=== PATIENT | male | born 1950 | race Caucasian/White ===

== ENCOUNTER 2016-11-11 13:26 | Emergency (ER) | payer MEDICARE ==
[~2016-11-11 13:26] MED LIST: ASPIRIN325 M3 PO; ATENOLOL100 M1 PO; AUGMENTIN 875-1 EAC2 PO; COMPLETE SENIO1 EACH PO; DOXAZOSIN PO; EYE VITAMIN-MI1 EACH PO; FLUTICASONE PRO16 G1; GABAPENTIN600 M2 PO; HYDRALAZINE HCL25 M1 PO; IBUPROFEN200 M3 PO; LATANOPROST; LEVOBUNOLOL OP; MAGNESIUM250 M2 PO; NORCO 5-325 TA1 EACH PO; TYLENOL WITH C1 EACH; VITAMIN C500 M3 PO; VITAMIN D-3 PO; VITAMIN D1000 UNI3 PO; VITAMIN E400 UNI8 PO; XALATAN2.5 M1 OP
[2016-11-11 14:30] LABS: BASO % 0.3 % (0-2); EOS % 0.4 % (0-7); HCT-HEMATOCRIT 48.5 % (36.0-53.5); HGB-HEMOGLOBIN 17.3 gm/dl (13.5-17.0); IMMATURE GRANULOCYTES ABSOLUTE 0.03 tho/cmm (0-0.03); IMMATURE GRANULOCYTES PERCENT 0.4 % (0-0.3); LYMPH % 25.8 % (20-45); LYMPH ABSOLUTE COUNT 1.8 tho/cmm (0.8-4.5); MCH (MEAN CORPUSCULAR HGB) 32.1 pg (28.0-32.0); MCHC MEAN CORPUSCULAR HGB CONC 35.7 % (32.0-36.0); MEAN PLATELET VOLUME 11.9 cmc (9.4-12.4); MONO % 12.6 % (0-12); MONOCYTE ABSOLUTE COUNT 0.9 tho/cmm (0.0-1.2); NEUTROPHIL ABSOLUTE COUNT 4.2 tho/cmm (1.6-8.0); NEUTROPHIL-AUTOMATED 4.2 tho/cmm (1.6-8.0); NEUTROPHILS % 60.5 % (40-80); PLATELET COUNT 197 tho/cmm (150-450); RED BLOOD COUNT 5.39 mil/cmm (4.40-5.70); RED CELL DISTRIBUTION WIDTH 13.6 % (12.4-16.4); WHITE BLOOD COUNT 6.9 tho/cmm (4.0-10.0)
[2016-11-11] MEDS ORDERED: WELCHOL625 M1 PO (14:38)
[2016-11-11] MEDS ORDERED: TRAZODONE HCL50 M1 PO (14:39)
[2016-11-11] MEDS ORDERED: FLUTICASONE PRO16 G1 (14:39)
[2016-11-11] MEDS ORDERED: BETAGAN5 M1 LEFT EYE (14:40)
[2016-11-11] MEDS ORDERED: POTASSIUM CHLO10 ME2 PO (14:43)
[2016-11-11] MEDS ORDERED: BUMETANIDE1 M1 PO (14:43)
[2016-11-11] MEDS ORDERED: GEMFIBROZIL600 M2 PO (14:44)
[2016-11-11] MEDS ORDERED: CARDURA2 M2 PO (14:44)
[2016-11-11 14:54] LABS: ALB/GLOB RATIO 0.8 (0.8-2.0); ALBUMIN 3.6 g/dl (3.5-5.0); ALKALINE PHOSPHATASE 57 U/L (33-138); ALT/SGPT 40 U/L (12-78); BILIRUBIN,TOTAL 0.8 mg/dl (0.0-1.5); BLOOD UREA NITROGEN 32 mg/dl (6-24); CALCIUM 9.3 mg/dl (8.5-10.5); CARBON DIOXIDE-VENOUS 21 mmol/L (22-32); CHLORIDE 104 mmol/l (96-110); CREATININE 1.99 mg/dl (0.60-1.30); GLUCOSE 92 mg/dL (70-110); LIPASE 447 U/L (73-393); SODIUM 136 mmol/L (135-145); eGFR VALUE FOR BLACK 39 mL/Min
[2016-11-11 15:12] LABS: ANION GAP 15 mmol/L (0-20); AST/SGOT 74 U/L (10-40); POTASSIUM 3.8 mmol/L (3.7-5.1)
[2016-11-11] MEDS ORDERED: TYLENOL325 M2 PO (15:15)
[2016-11-11] MEDS ORDERED: TYLENOL WITH C1 EACH PO (15:16)
[2016-11-11] MEDS ORDERED: CALCIUM500 M3 PO (15:16)
[2016-11-11 15:25] LABS: URINE APPEARANCE CLEAR; URINE BILIRUBIN NEGATIVE (NEG); URINE BLOOD SMALL (NEG); URINE COLOR PALE YELLOW; URINE GLUCOSE (UA) NEGATIVE (NEG); URINE KETONE NEGATIVE (NEG); URINE LEUKOCYTE ESTERASE NEGATIVE (NEG); URINE NITRITE NEGATIVE (NEG); URINE PROTEIN MODERATE (NEG)
[2016-11-11 15:54] LABS: URINE RBC 0-1 /[HPF] (0-5)
[2016-11-11] MEDS ORDERED: NEXIUM40 M1 PO (17:11)
[2017-02-12] MEDS ORDERED: ASPIRIN81 M1 PO (07:25)
[2017-05-09] MEDS ORDERED: BETA BLOCKER (17:10)
[2017-05-09] MEDS ORDERED: METHADONE HCL10 M1 PO (17:26)
[2017-05-15] MEDS ORDERED: TOPROL XL50 M1 PO (17:10)
[2017-05-18] MEDS ORDERED: LEVAQUIN500 M1 PO (10:44)
[2017-05-18] MEDS ORDERED: MEDROL4 M2 PO (10:44)
[2017-05-18] MEDS ORDERED: PRILOSEC OTC20 M1 PO (10:45)
[2017-05-18] MEDS ORDERED: ZOFRAN8 M1 PO (10:46)
[2017-05-18] MEDS ORDERED: COLACE100 M1 PO (10:47)
== END 2016-11-11 17:22 ==
LOC: EDMED 13:26
PROVIDERS: Emergency Medicine
DX: K29.70 Gastritis, unspecified, without bleeding (principal); I10 Essential (primary) hypertension; E78.5 Hyperlipidemia, unspecified; Z90.89 Acquired absence of other organs; Z79.899 Other long term (current) drug therapy
CPT/HCPCS: J1170; J2405; J7030; Q9967

== ENCOUNTER 2017-01-12 06:37 | Day surgery (SDC) | payer MEDICARE, BC ==
[~2017-01-12 06:37] MED LIST changes: +BETAGAN5 M1 LEFT EYE; +BUMETANIDE1 M1 PO; +CALCIUM500 M3 PO; +CARDURA2 M2 PO; +GEMFIBROZIL600 M2 PO; +NEXIUM40 M1 PO; +POTASSIUM CHLO10 ME2 PO; +TRAZODONE HCL50 M1 PO; +TYLENOL WITH C1 EACH PO; +TYLENOL325 M2 PO; +WELCHOL625 M1 PO
[2017-01-12 07:54] LABS: BASO % 1.1 % (0-2); BASO ABSOLUTE COUNT 0.1 tho/cmm (0.0-0.2); EOSINOPHIL ABSOLUTE COUNT 0.1 tho/cmm (0.0-0.7); HGB-HEMOGLOBIN 14.7 gm/dl (13.5-17.0); LYMPH % 26.1 % (20-45); LYMPH ABSOLUTE COUNT 1.7 tho/cmm (0.8-4.5); MCH (MEAN CORPUSCULAR HGB) 31.3 pg (28.0-32.0); MCHC MEAN CORPUSCULAR HGB CONC 32.7 % (32.0-36.0); MCV (MEAN CELL VOLUME) 95.9 fl (82.0-96.0); MEAN PLATELET VOLUME 11.5 cmc (9.4-12.4); MONO % 11.2 % (0-12); MONOCYTE ABSOLUTE COUNT 0.7 tho/cmm (0.0-1.2); NEUTROPHIL ABSOLUTE COUNT 3.9 tho/cmm (1.6-8.0); NEUTROPHIL-AUTOMATED 3.9 tho/cmm (1.6-8.0); NEUTROPHILS % 59.6 % (40-80); PLATELET COUNT 175 tho/cmm (150-450); RED BLOOD COUNT 4.69 mil/cmm (4.40-5.70); RED CELL DISTRIBUTION WIDTH 14.2 % (12.4-16.4); WHITE BLOOD COUNT 6.5 tho/cmm (4.0-10.0)
[2017-01-12 08:00] LABS: INR 0.9 INR (0.9-1.1); PROTHROMBIN TIME 10.4 SECONDS (9.0-13.6)
[2017-02-12] MEDS ORDERED: ASPIRIN81 M1 PO (07:25)
[2017-05-09] MEDS ORDERED: BETA BLOCKER (17:10)
[2017-05-09] MEDS ORDERED: METHADONE HCL10 M1 PO (17:26)
[2017-05-15] MEDS ORDERED: TOPROL XL50 M1 PO (17:10)
[2017-05-18] MEDS ORDERED: MEDROL4 M2 PO (10:44)
[2017-05-18] MEDS ORDERED: LEVAQUIN500 M1 PO (10:44)
[2017-05-18] MEDS ORDERED: PRILOSEC OTC20 M1 PO (10:45)
[2017-05-18] MEDS ORDERED: ZOFRAN8 M1 PO (10:46)
[2017-05-18] MEDS ORDERED: COLACE100 M1 PO (10:47)
== END 2017-01-12 12:50 ==
LOC: US 06:37 → SHSB 07:16
PROVIDERS: Radiology Diagnostic Radiology
PROC: 0FB13ZX Excision of Right Lobe Liver, Percutaneous Approach, Diagnostic (ICD-10-PCS; principal; 2017-01-12)
DX: C22.7 Other specified carcinomas of liver (principal); I12.9 Hypertensive chronic kidney disease with stage 1 through stage 4 chronic kidney disease, or unspecified chronic kidney disease; N18.3 Chronic kidney disease, stage 3 (moderate); H40.10X0 Unspecified open-angle glaucoma, stage unspecified; J31.0 Chronic rhinitis; E55.9 Vitamin D deficiency, unspecified; E78.5 Hyperlipidemia, unspecified; M48.00 Spinal stenosis, site unspecified; R80.9 Proteinuria, unspecified; R73.01 Impaired fasting glucose; K80.20 Calculus of gallbladder without cholecystitis without obstruction; N20.0 Calculus of kidney; Z79.82 Long term (current) use of aspirin; Z79.51 Long term (current) use of inhaled steroids; Z79.899 Other long term (current) drug therapy; Z88.8 Allergy status to other drugs, medicaments and biological substances; Z80.0 Family history of malignant neoplasm of digestive organs; Z90.49 Acquired absence of other specified parts of digestive tract
CPT/HCPCS: J3010; J7030